=== PATIENT | female | born 1985 | race Caucasian/White ===

== ENCOUNTER → 2020-02-15 | Outpatient (CLI) | payer OTHER ==
[2020-02-15 09:01] LABS: BASOPHILS # (AUTO) 0.04 x10^3/uL (0-0.1); BASOPHILS % (AUTO) 0 % (0-1); EOSINOPHILS # (AUTO) 0.35 x10^3/uL (0-0.4); EOSINOPHILS % (AUTO) 3 % (1-7); LYMPHOCYTES # (AUTO) 2.42 x10^3/uL (1-3.4); LYMPHOCYTES % (AUTO) 20 % (22-44); MD NO; MEAN CORPUSCULAR HEMOGLOBIN 31.1 pg (27.0-34.8); MEAN CORPUSCULAR HGB CONC 33.4 g/dL (32.4-35.8); MEAN CORPUSCULAR VOLUME 93.2 fL (80-100); MEAN PLATELET VOLUME 7.4 fL (7.4-10.4); MONOCYTES # (AUTO) 0.58 x10^3/uL (0.2-0.8); MONOCYTES % (AUTO) 5 % (2-9); NEUTROPHILS # (AUTO) 8.66 x10^3/uL (1.8-6.8); NEUTROPHILS % (AUTO) 72 % (42-75); PLATELET COUNT 308 x10^3/uL (130-400); RED CELL DISTRIBUTION WIDTH 12.9 % (9.6-15.2)
[2020-02-15 09:49] LABS: MICROSCOPIC INDICATED
== END | disposition home or self-care (01) ==
LOC: LAB 08:17
PROVIDERS: ATTEND Obstetrics & Gynecology
DX: O09.521 Supervision of elderly multigravida, first trimester (principal); Z3A.00 Weeks of gestation of pregnancy not specified
CPT/HCPCS: 36415; 81001; 82306; 85025; 86592; 86762; 86787; 86803; 86850; 86900; 87086; 87340; 87806; G0475

== ENCOUNTER → 2020-04-25 | Outpatient (CLI) | payer OTHER | END | disposition home or self-care (01) | LOC: LAB 16:09 | PROVIDERS: ATTEND Obstetrics & Gynecology | DX: Z34.02 Encounter for supervision of normal first pregnancy, second trimester (principal); Z3A.00 Weeks of gestation of pregnancy not specified | CPT/HCPCS: 36415; 82105 ==

== ENCOUNTER → 2020-07-05 | Outpatient (CLI) | payer OTHER ==
[2020-07-05 12:37] LABS: BASOPHILS % (AUTO) 0 % (0-1); EOSINOPHILS % (AUTO) 3 % (1-7); LYMPHOCYTES % (AUTO) 17 % (22-44); MEAN CORPUSCULAR HGB CONC 33.8 g/dL (32.4-35.8); MEAN PLATELET VOLUME 8.1 fL (7.4-10.4); MONOCYTES % (AUTO) 7 % (2-9); NEUTROPHILS % (AUTO) 72 % (42-75); PLATELET COUNT 265 x10^3/uL (130-400); RED BLOOD COUNT 3.92 x10^6/uL (3.82-5.3); RED CELL DISTRIBUTION WIDTH 13.1 % (9.6-15.2)
[2020-07-05 12:39] LABS: MD NO
== END | disposition home or self-care (01) ==
LOC: LAB 11:13
PROVIDERS: ATTEND Obstetrics & Gynecology
DX: O09.90 Supervision of high risk pregnancy, unspecified, unspecified trimester (principal)
CPT/HCPCS: 36415; 82306; 82950; 85025; 86592

== ENCOUNTER 2020-09-02 05:18 | Inpatient (IN) | payer OTHER ==
[~2020-09-02] VITALS: Ht 170.2 cm; Wt 110.0 kg
[2020-09-02] MEDS ORDERED: METOCLOPRAMIDE 5 MG/ML, 2ML IV ONE (05:30)
[2020-09-02] MEDS ORDERED: SODIUM CITRATE/CITRIC ACID 30 ML UDC PO ONE (05:30)
[2020-09-02] MEDS ORDERED: LACTATED RINGERS 1,000 ML IVBOLUS ONE (05:30)
[2020-09-02] MEDS ORDERED: CEFAZOLIN PMX 1GM/50ML 50 ML IVPB ONE (05:30)
[2020-09-02] MEDS ORDERED: PLEASE ENTER ALLERGIES MC SCH (05:30)
[2020-09-02] MEDS ORDERED: NEWBORN KIT ONE (05:34)
[2020-09-02] MEDS ORDERED: METOCLOPRAMIDE 5 MG/ML, 2ML ONE (06:01)
[2020-09-02] MEDS ORDERED: SODIUM CITRATE/CITRIC ACID 15 ML UDC ONE (06:02)
[2020-09-02 06:09] LABS: BASOPHILS % (AUTO) 1 % (0-1); EOSINOPHILS % (AUTO) 2 % (1-7); LYMPHOCYTES % (AUTO) 28 % (22-44); MEAN CORPUSCULAR HEMOGLOBIN 27.4 pg (27.0-34.8); MEAN CORPUSCULAR HGB CONC 33.5 g/dL (32.4-35.8); MEAN PLATELET VOLUME 9.2 fL (7.4-10.4); MONOCYTES % (AUTO) 9 % (2-9); NEUTROPHILS % (AUTO) 60 % (42-75); PLATELET COUNT 229 x10^3/uL (130-400); RED BLOOD COUNT 4.01 x10^6/uL (3.82-5.3)
[2020-09-02 06:13] LABS: MD NO
[2020-09-02 06:24] VITALS: BP 133/78
[2020-09-02] MEDS ORDERED: OXYTOCIN 30U/ 0.9% NaCL 500ML 500 ML ONE (07:02)
[2020-09-02] MEDS ORDERED: morphine SULFATE/PF 0.5 MG/ML, 10ML ONE (07:35)
[2020-09-02] MEDS ORDERED: OXYTOCIN 10 UNITS/ML, 1ML ONE (07:38)
[2020-09-02] MEDS ORDERED: CEFAZOLIN 1,000 MG ONE (07:38)
[2020-09-02] MEDS ORDERED: KETOROLAC 30 MG/1 ML ONE (07:38)
[2020-09-02] MEDS ORDERED: DEXAMETHASONE 4 MG/ML, 1ML ONE (07:38)
[2020-09-02] MEDS ORDERED: ONDANSETRON 2MG/ML, 2ML ONE (07:38)
[2020-09-02] MEDS ORDERED: WATER-INJECTION,STERILE 10 ML IV ONE (07:38)
[2020-09-02] MEDS ORDERED: PHENYLEPHRINE 10 MG/ML ONE (08:00)
[2020-09-02] MEDS ORDERED: SODIUM CHLORIDE 0.9% PF 10ML ONE (08:00)
[2020-09-02] MEDS ORDERED: IBUPROFEN 200 MG TABLET PO PRN (09:00)
[2020-09-02] MEDS ORDERED: BISACODYL 10 MG SUPP PR PRN (09:00)
[2020-09-02] MEDS ORDERED: MISOPROSTOL 200 MCG TABLET PR PRN (09:00)
[2020-09-02] MEDS ORDERED: IBUPROFEN 800 MG TABLET PO PRN (09:00)
[2020-09-02] MEDS ORDERED: RHOGAM FROM BLOOD BANK 1 NOTE EA IM/IV ONE (09:00)
[2020-09-02] MEDS ORDERED: HYDROcodone/APAP 5/325 TABLET PO PRN (09:00)
[2020-09-02] MEDS: PRENATAL VIT/IRON/FA 1 EACH TABLET PO SCH (09:00)
[2020-09-02] MEDS ORDERED: ONDANSETRON 2MG/ML, 2ML IV PRN (09:00)
[2020-09-02] MEDS ORDERED: OXYcodone/APAP 5/325MG TABLET PO PRN ×5 (09:00→13:30)
[2020-09-02] MEDS ORDERED: ACETAMINOPHEN 325 MG TABLET PO PRN (09:00)
[2020-09-02] MEDS ORDERED: MISOPROSTOL 200 MCG TABLET ONE (09:39)
[2020-09-02] MEDS ORDERED: METHYLERGONOVINE 0.2 MG/ML IM ONE (09:39)
[2020-09-02] MEDS ORDERED: OXYcodone 5 MG/5 ML ORAL.SOL UDC ONE (09:57)
[2020-09-02] MEDS ORDERED: OXYcodone 5 MG/5 ML ORAL.SOL UDC PO PRN (10:00)
[2020-09-02] MEDS: OXYTOCIN 30U/ 0.9% NaCL 500ML 500 ML IV SCH ×2 (11:03→18:27)
[2020-09-02 11:50] VITALS: BP 138/93
[2020-09-02] MEDS ORDERED: EPHEDRINE 50 MG/ML, 1ML IVPush PRN ×2 (13:30)
[2020-09-02] MEDS ORDERED: NALOXONE 0.4 MG/ML, 1ML IV PRN (13:30)
[2020-09-02] MEDS ORDERED: MORPHINE SULFATE 4 MG/ML, 1ML IVPush PRN ×3 (13:30)
[2020-09-02] MEDS ORDERED: ONDANSETRON 2MG/ML, 2ML IVPush PRN ×2 (13:30)
[2020-09-02] MEDS ORDERED: DIPHENHYDRAMINE 50 MG/ML, 1ML IV PRN ×2 (13:30→14:00)
[2020-09-02] MEDS ORDERED: NO SEDATIVES, TRANQUILIZERS OR ANTIEMETICS XX SCH (13:30)
[2020-09-02] MEDS: OXYcodone/APAP 5/325MG TABLET PO PRN ×2 (13:32→19:28)
[2020-09-02] MEDS: KETOROLAC 30 MG/1 ML IVPush SCH ×2 (14:49→20:14)
[2020-09-02 16:29] LABS: BASOPHILS % (AUTO) 0 % (0-1); EOSINOPHILS % (AUTO) 0 % (1-7); LYMPHOCYTES % (AUTO) 9 % (22-44); MEAN CORPUSCULAR HEMOGLOBIN 27.4 pg (27.0-34.8); MEAN CORPUSCULAR HGB CONC 33.5 g/dL (32.4-35.8); MONOCYTES % (AUTO) 5 % (2-9); NEUTROPHILS % (AUTO) 85 % (42-75); PLATELET COUNT 231 x10^3/uL (130-400); RED BLOOD COUNT 3.87 x10^6/uL (3.82-5.3)
[2020-09-02 16:33] VITALS: BP 131/84
[2020-09-02 16:55] LABS: MD SCAN
[2020-09-02 19:56] VITALS: BP 136/80
[2020-09-03 00:40] VITALS: BP 138/84
[2020-09-03] MEDS: OXYcodone/APAP 5/325MG TABLET PO PRN ×6 (01:30→20:29)
[2020-09-03] MEDS: KETOROLAC 30 MG/1 ML IVPush SCH ×4 (02:40→20:29)
[2020-09-03 04:00] VITALS: BP 132/82
[2020-09-03] MEDS: OXYTOCIN 30U/ 0.9% NaCL 500ML 500 ML IV SCH (05:00)
[2020-09-03 07:30] VITALS: BP 114/71
[2020-09-03] MEDS: PRENATAL VIT/IRON/FA 1 EACH TABLET PO SCH (07:30)
[2020-09-03] MEDS: DOCUSATE 100 MG CAPSULE PO PRN ×2 (07:30→20:29)
[2020-09-03] MEDS: POLYETHYLENE GLYCOL 17 GM PACKET PO PRN (10:30)
[2020-09-03] MEDS ORDERED: SIMETHICONE 80 MG CHEW TAB ONE (16:07)
[2020-09-03] MEDS: SIMETHICONE 80 MG CHEW TAB PO PRN (16:13)
[2020-09-03 20:00] VITALS: BP 134/86
[2020-09-04] MEDS: SIMETHICONE 80 MG CHEW TAB PO PRN (00:51)
[2020-09-04] MEDS: OXYcodone/APAP 5/325MG TABLET PO PRN ×4 (00:51→12:43)
[2020-09-04] MEDS: KETOROLAC 30 MG/1 ML IVPush SCH (02:56)
[2020-09-04 07:00] VITALS: BP 116/72
[2020-09-04] MEDS: PRENATAL VIT/IRON/FA 1 EACH TABLET PO SCH (08:59)
[2020-09-04] MEDS: POLYETHYLENE GLYCOL 17 GM PACKET PO PRN (08:59)
[2020-09-04] MEDS ORDERED: IBUP-1223 PO (09:38)
[2020-09-04] MEDS ORDERED: OXYC1TAB14 PO (09:38)
[2020-09-04] MEDS ORDERED: DOCU-186 PO (09:38)
== END 2020-09-04 16:30 | disposition home or self-care (01) | DRG 785 ==
LOC: LDIP 05:18 → 2NW 11:10
PROVIDERS: ADMIT Obstetrics & Gynecology; ATTEND Obstetrics & Gynecology
PROC: 0UB70ZZ Excision of Bilateral Fallopian Tubes, Open Approach (ICD-10-PCS; principal; 2020-09-02)
PROC: 10D00Z1 Extraction of Products of Conception, Low, Open Approach (ICD-10-PCS; 2020-09-02)
PROC: 3E0234Z Introduction of Serum, Toxoid and Vaccine into Muscle, Percutaneous Approach (ICD-10-PCS; 2020-09-02)
DX: O99.52 Diseases of the respiratory system complicating childbirth (principal); O40.3XX0 Polyhydramnios, third trimester, not applicable or unspecified; Z37.0 Single live birth; E55.9 Vitamin D deficiency, unspecified; J45.909 Unspecified asthma, uncomplicated; O26.893 Other specified pregnancy related conditions, third trimester; K21.9 Gastro-esophageal reflux disease without esophagitis; O99.62 Diseases of the digestive system complicating childbirth; O36.63X0 Maternal care for excessive fetal growth, third trimester, not applicable or unspecified; Z20.822 Contact with and (suspected) exposure to COVID-19; Z67.91 Unspecified blood type, Rh negative; Z80.3 Family history of malignant neoplasm of breast; Z3A.39 39 weeks gestation of pregnancy; Z82.3 Family history of stroke; Z82.49 Family history of ischemic heart disease and other diseases of the circulatory system; Z83.3 Family history of diabetes mellitus
CPT/HCPCS: 36415; 85025; 85461; 86592; 86850; 86900; 87635; 88305; G0378; J0690; J1100; J1885; J2274; J2405; J2790; J1200; J2210; J2270; J2370; J2590; J2765